=== PATIENT | female | born 1990 | race African-American/Black ===

== ENCOUNTER 2021-08-19 11:23 | Day surgery (SDC) | payer OTHER ==
[2021-08-19] MEDS ORDERED: FERRIC CARBOXYMALTOSE 750 MG in SODIUM CHLORIDE 250 ML IVPB ONE (12:00)
[2021-08-19 13:21] VITALS: BP 117/72; PULSE 79; TEMP 98.2
== END 2021-08-19 12:00 | disposition home or self-care (01) ==
LOC: FINFUSION 11:23 → FM/S 11:26 → FINFUSION 12:00
PROVIDERS: ATTEND Family Medicine
PROC: 3E033GC Introduction of Other Therapeutic Substance into Peripheral Vein, Percutaneous Approach (ICD-10-PCS; principal; 2021-08-19)
DX: D50.9 Iron deficiency anemia, unspecified (principal)
CPT/HCPCS: 96365; J1439

== ENCOUNTER 2021-08-26 11:58 | Day surgery (SDC) | payer OTHER ==
[2021-08-26] MEDS ORDERED: FERRIC CARBOXYMALTOSE 750 MG in SODIUM CHLORIDE 250 ML IVPB ONE (12:45)
[2021-08-26 14:06] VITALS: BP 112/60; PULSE 66; TEMP 99
== END 2021-08-26 13:00 | disposition home or self-care (01) ==
LOC: FINFUSION 11:58 → FM/S 12:06 → FINFUSION 13:00
PROVIDERS: ATTEND Family Medicine
PROC: 3E033GC Introduction of Other Therapeutic Substance into Peripheral Vein, Percutaneous Approach (ICD-10-PCS; principal; 2021-08-26)
DX: D50.9 Iron deficiency anemia, unspecified (principal)
CPT/HCPCS: 96365; J1439